=== PATIENT | male | born 1990 | race African-American/Black ===

== ENCOUNTER 2018-12-03 20:48 | Emergency (ER) | payer SELFPAY ==
[2015-10-09 18:24] VITALS: BP 148/98
[~2018-12-03 20:48] MED LIST: CYCL10TA2 PO; HYDR-3164 PO; NAPR500T8 PO
== END 2018-12-03 20:52 | disposition left against medical advice (07) ==
LOC: ER 20:48
DX: R51 Headache (principal); Z53.21 Procedure and treatment not carried out due to patient leaving prior to being seen by health care provider